=== PATIENT | female | born 1950 | race Caucasian/White ===

== ENCOUNTER 2017-06-03 19:10 | Emergency (ER) | payer OTHER ==
[~2017-06-03] VITALS: Ht 170.2 cm; Wt 66.7 kg
[2017-06-03 19:29] VITALS: BP 119/64; PULSE 72; RESP 18; TEMP 98.3; O2SAT 96
[2017-06-03] MEDS ORDERED: LIDOCAINE 1%/EPINEPHrine 1:100,000 SOLN 20 ML VIAL INFIL ONE (19:45)
[2017-06-03] MEDS ORDERED: TETANUS/DIPHTHERIA TOXOID ADULT 0.5 ML VIAL IM ONE (19:45)
[2017-06-03] MEDS ORDERED: LIDOCAINE 1%/EPINEPHrine 1:100,000 SOLN 30 ML VIAL ONE (19:46)
[2017-06-03] MEDS ORDERED: LOSA25TA PO (20:02)
[2017-06-03] MEDS ORDERED: ATOR20TA15 PO (20:02)
[2017-06-03] MEDS ORDERED: FLUO1TAB3 PO (20:02)
[2017-06-03] MEDS ORDERED: DIVA500T PO (20:02)
[2017-06-03] MEDS ORDERED: AMLO10TA2 PO (20:02)
--- NOTE | 2017-06-03 20:06 | PD ---
HPI Chief Complaint: Laceration/Skin Injury Time Seen by Provider: 19:35 Travel History International Travel<30 days: No Contact w/Intl Traveler<30days: No Traveled to known affect area: No History of Present Illness HPI 66-year-old female that presents to the ED for evaluation of laceration to her left wrist. The patient is happened today but less than 2 hours ago after washing some dishes and apparently while the coffee cups was broken and cut her. She denies any other medical issues. She is not sure of her last tetanus booster. Has an allergy to sulfa, amoxicillin and codeine. Per patient pain is minimal. 2 out of 10. She wasn't sure if it needed suturing. Per patient she applied some dressing to it because he was bleeding. Denies any bleeding disorders. No blood thinners. No other medical issues. [facility] Social History Tobacco Use: No Allergies-Medications (Allergen,Severity, Reaction): Coded Allergies: amoxicillin (Unverified Allergy, Severe, Diarrhea, 06/03/17) codeine (Unverified Allergy, Severe, Itching, 06/03/17) Sulfa (Sulfonamide Antibiotics) (Unverified Allergy, Mild, NAUSEA, 06/03/17) Review of Systems Except as stated in HPI: all other systems reviewed are Neg Physical Exam Narrative GENERAL: SKIN: Warm and dry. Patient has a superficial 1 severe laceration to the left wrist. Does appear to be about half centimeter deep. No vessel, tendon or muscle injury noted. HEAD: Atraumatic. Normocephalic. EYES: Pupils equal and round. No scleral icterus. No injection or drainage. ENT: No nasal bleeding or discharge. Mucous membranes pink and moist. NECK: Trachea midline. No JVD. CARDIOVASCULAR: Regular rate and rhythm. RESPIRATORY: No accessory muscle use. Clear to auscultation. Breath sounds equal bilaterally. GASTROINTESTINAL: Abdomen soft, non-tender, nondistended. Hepatic and splenic margins not palpable. MUSCULOSKELETAL: Extremities without clubbing, cyanosis, or edema. No obvious deformities. NEUROLOGICAL: Awake and alert. No obvious cranial nerve deficits. Motor grossly within normal limits. Five out of 5 muscle strength in the arms and legs. Normal speech. PSYCHIATRIC: Appropriate mood and affect; insight and judgment normal. Data Data Last Documented VS Vital Signs Date Time Temp Pulse Resp B/P (MAP) Pulse Ox O2 Delivery O2 Flow Rate FiO2 06/03/17 19:29 98.3 72 18 119/64 (82) 96 Orders Orders Wound Care (06/03/17 19:39) Lidocai-Epi 1%-1:100,000 Inj (Xylocaine- (06/03/17 19:45) Tetanus/Diphtheria Tox Adult (Tetanus/Di (06/03/17 19:45) Lidocai-Epi 1%-1:100,000 Inj (Xylocaine- (06/03/17 19:46) MDM Medical Decision Making Medical Screen Exam Complete: Yes Emergency Medical Condition: Yes Medical Record Reviewed: Yes Differential Diagnosis Laceration versus abrasion versus skin tear Narrative Course 66-year-old female that presents to the ED for evaluation of laceration. After explained procedure to the patient and she agreed to it laceration was repaired as in procedure note. Tetanus booster given. Patient was told to get sutures removed in 2 weeks. Follow with PCP. See ED worsening symptoms. Procedures Procedure Narrative LACERATION LOCATION: left arm LENGTH: 1 cm NUMBER OF STITCHES/TALIA: 3 sutures REPAIR: The area of the laceration was prepped with Betadine and sterilely draped. The laceration was infiltrated with 1% Xylocaine. The wound was copiously irrigated and explored without evidence of foreign body, tendon injury or neurovascular injury. The wound was closed using 4-0 Prolene. This was a 1 layer repair. A sterile dressing was applied. The patient was advised to keep the dressing clean and dry. Patient tolerated the procedure well. Diagnosis Primary Impression: Laceration of upper arm Qualified Codes: S41.112A - Laceration without foreign body of left upper arm , initial encounter Patient Instructions: General Instructions Additional Instructions: Wound care daily with soap and water. You can apply bandaid if needed. Neosporyn or OTC antibiotic ointment to area as needed twice a day for at least 2 weeks to help with scarring and prevent infection. Meoderma OTC for scarring if needed. Avoid sun exposure for 2 months as the sun could make scar darker and more noticeable. Get sutures removed in 14 days. See ED if worst. Med/Other Pt SpecificInfo: Prescription(s) given Disposition: 01 DISCHARGE HOME Condition: Stable Shilo He Jun 03, 2017 20:06
[2017-06-03] MEDS ORDERED: MUPI2OIN TOPICAL (20:16)
== END 2017-06-03 21:13 | disposition home or self-care (01) ==
LOC: PHEFT 19:10
DX: S61.512A Laceration without foreign body of left wrist, initial encounter (principal); W25.XXXA Contact with sharp glass, initial encounter; Y93.G1 Activity, food preparation and clean up; Z23 Encounter for immunization
CPT/HCPCS: 12001; 90471; 90714